=== PATIENT | female | born 1980 | race Caucasian/White ===

== ENCOUNTER 2016-09-20 16:46 | Emergency (ER) | payer OTHER ==
[~2016-09-20] VITALS: Ht 160 cm; Wt 90.7 kg
[~2016-09-20 16:46] MED LIST: ALBUTEROL SULF8.5 GM INH; ALPRAZOLAM0.5 MG PO; AMBIEN10 MG PO; CYCLOBENZAPRINE10 MG PO; DOXYCYCLINE HY100 MG PO; FLUTICASONE PRO16 GM NAS; GABAPENTIN300 MG PO; GUIATUSS AC SY120 ML PO; HYDROCODON-ACE1 EA10 PO; IBUPROFEN800 MG PO; LEVOFLOXACIN500 MG PO; LIDODERM700 MG TOP; MOBIC7.5 MG PO; NAPROSYN500 MG PO; NAPROXEN500 MG PO; NORCO 5-325 TA1 EACH PO; OMEPRAZOLE20 MG PO; PREDNISONE20 MG PO; TIZANIDINE HCL2 MG PO; VENTOLIN HFA18 GM INH; ZANTAC 7575 MG PO
[2016-09-20] MEDS ORDERED: ACETAMINOPHEN1 EACH PO (17:00)
[2016-09-20] MEDS ORDERED: ONDANSETRON ODT8 MG PO (18:15)
== END 2016-09-20 18:24 | disposition home or self-care (01) ==
LOC: ED 16:46
DX: M54.5 Low back pain (principal); T67.5XXA Heat exhaustion, unspecified, initial encounter; K21.9 Gastro-esophageal reflux disease without esophagitis; F41.9 Anxiety disorder, unspecified; Z90.49 Acquired absence of other specified parts of digestive tract; Z98.51 Tubal ligation status; Z88.0 Allergy status to penicillin; Z79.899 Other long term (current) drug therapy
CPT/HCPCS: 80053; 81001; 84703; 85025; 96361; 96374; 96375; 99283; J1885; J2405; J7030

== ENCOUNTER 2016-09-26 18:05 | Emergency (ER) | payer OTHER ==
[~2016-09-26] VITALS: Ht 160 cm; Wt 90.7 kg
[~2016-09-26 18:05] MED LIST changes: +ACETAMINOPHEN1 EACH PO; +ONDANSETRON ODT8 MG PO
[2016-09-26] MEDS ORDERED: TYLENOL EXTRA500 MG PO (18:20)
[2016-09-26] MEDS ORDERED: ADVIL200 M1 PO (18:20)
[2016-09-26] MEDS ORDERED: ZITHROMAX250 MG PO (18:50)
[2016-09-27] MEDS ORDERED: DEXAMETHASONE4 MG PO (04:28)
[2016-09-27] MEDS ORDERED: TRAMADOL HCL50 MG PO (04:28)
== END 2016-09-26 18:56 | disposition home or self-care (01) ==
LOC: ED 18:05
DX: J02.9 Acute pharyngitis, unspecified (principal); K21.9 Gastro-esophageal reflux disease without esophagitis; M06.9 Rheumatoid arthritis, unspecified; F41.9 Anxiety disorder, unspecified; Z90.49 Acquired absence of other specified parts of digestive tract; Z98.51 Tubal ligation status; Z79.899 Other long term (current) drug therapy; Z88.0 Allergy status to penicillin
CPT/HCPCS: 99283

== ENCOUNTER 2016-09-27 03:50 | Emergency (ER) | payer OTHER ==
[~2016-09-27] VITALS: Ht 160 cm; Wt 90.7 kg
[~2016-09-27 03:50] MED LIST changes: +ADVIL200 M1 PO; +TYLENOL EXTRA500 MG PO; +ZITHROMAX250 MG PO
[2016-09-27] MEDS ORDERED: DEXAMETHASONE4 MG PO (04:28)
[2016-09-27] MEDS ORDERED: TRAMADOL HCL50 MG PO (04:28)
== END 2016-09-27 04:52 | disposition home or self-care (01) ==
LOC: ED 03:50
DX: J02.9 Acute pharyngitis, unspecified (principal); K21.9 Gastro-esophageal reflux disease without esophagitis; F41.9 Anxiety disorder, unspecified; Z98.51 Tubal ligation status; Z90.49 Acquired absence of other specified parts of digestive tract; Z88.0 Allergy status to penicillin; Z79.2 Long term (current) use of antibiotics
CPT/HCPCS: 99283; J1100

== ENCOUNTER 2017-12-26 07:32 | Emergency (ER) | payer OTHER ==
[~2017-12-26] VITALS: Ht 160 cm; Wt 90.7 kg
[~2017-12-26 07:32] MED LIST changes: +DEXAMETHASONE4 MG PO; +TRAMADOL HCL50 MG PO
--- OUTSIDE RECORDS SUMMARY | 2017-12-26 07:36 | XMS ---
PreManage Notification: POOJA CAREY Security Preboarder Events No recent Security Events currently on file CRITERIA MET - Group Notification CARE PROVIDERS DAVE PATINO Primary Care 01/04/2016-Current PHONE: [phone] Jna has no Care Guidelines for this patient. E.Golden VISIT COUNT (12 MO.) 1 [facility] Galleg[facility] TOTAL 1 NOTE: Visits indicate total known visits. ED/UCC VISIT TRACKING (12 MO.) 12/26/2017 07:33 [facility] [place] TYPE: Emergency COMPLAINT: - LOW BACK PAIN,NON INJURY INPATIENT VISIT TRACKING (12 MO.) No inpatient visits to display in this time frame [id number]
[2017-12-26] MEDS ORDERED: TIZANIDINE HCL2 MG PO ×2 (07:42→08:41)
[2017-12-26] MEDS ORDERED: VENTOLIN HFA18 GM INH (07:44)
[2017-12-26] MEDS ORDERED: ZOLPIDEM TARTRAT5 MG PO (07:44)
[2017-12-26] MEDS ORDERED: FLUTICASONE PRO16 GM NAS (07:44)
[2017-12-26] MEDS ORDERED: HYDROXYZINE HCL25 MG PO (07:44)
[2017-12-26] MEDS ORDERED: NORCO 5-325 TA1 EACH PO (08:41)
[2017-12-26] MEDS ORDERED: NAPROSYN500 MG PO (08:41)
== END 2017-12-26 09:00 | disposition home or self-care (01) ==
LOC: ED 07:32
DX: S39.012A Strain of muscle, fascia and tendon of lower back, initial encounter (principal); X58.XXXA Exposure to other specified factors, initial encounter; Z88.0 Allergy status to penicillin
CPT/HCPCS: 72100; 81001; 96372; 99283; J1885

== ENCOUNTER 2019-05-21 05:58 | Emergency (ER) | payer OTHER ==
[~2019-05-21] VITALS: Ht 157.5 cm; Wt 90.7 kg
[~2019-05-21 05:58] MED LIST changes: +HYDROXYZINE HCL25 MG PO; +ZOLPIDEM TARTRAT5 MG PO
--- OUTSIDE RECORDS SUMMARY | 2019-05-21 06:00 | XMS ---
PreManage Notification: POOJA CAREY Security Car Shunter Events No recent Security Events currently on file CRITERIA MET - Group Notification - [facility] - Has Care Guidelines - PDMP CARE PROVIDERS SAUMYA NAVARRO Nurse Practitioner: Family 12/27/2017-Current PHONE: [phone] DAVE PATINO Primary Care 01/04/2016-Current PHONE: [phone] Guidelines Source: [facility] Guidelines Date: 09/23/2018 Care Coordination: Enrolled in mental health services with [employer] [facility].\T\nbsp; Currently not engaging. \T\nbsp; Please contact [facility] with mental health concerns.\T\nbsp; Chantal/ Thaddeus Pacheco: [phone]\T\nbsp; [place]: [phone]. Care History Medical/Surgical 12/27/2017 [facility] - Patient is currently established with [facility]. If patient is seen in the ED during business hours. Please contact CHWs at [facility]. Care Recommendation: This patient has had 5 or more Emergency Department visits in the last 12 months.\T\nbsp; Patient requires education on the scope and purpose of the ED as an acute care provider not a Primary Care Provider and should not be utilized for chronic conditions.\T\nbsp; These are guidelines and the provider should exercise clinical judgment when providing care. E.D. VISIT COUNT (12 MO.) 2 ALLYSON Gallego TOTAL 2 NOTE: Visits indicate total known visits. ED/UCC VISIT TRACKING (12 MO.) 05/21/2019 05:59 [facility] [place] TYPE: Emergency COMPLAINT: - COUGH 09/22/2018 13:26 [facility] [place] TYPE: Emergency COMPLAINT: - NECK PAIN, UPPER BACK PAIN DIAGNOSES: - Pain in thoracic spine - Allergy status to penicillin INPATIENT VISIT TRACKING (12 MO.) No inpatient visits to display in this time frame [id number]
== END 2019-05-21 06:45 | disposition home or self-care (01) ==
LOC: ED 05:58
DX: J45.909 Unspecified asthma, uncomplicated (principal); Z90.49 Acquired absence of other specified parts of digestive tract; Z90.89 Acquired absence of other organs; Z88.0 Allergy status to penicillin
CPT/HCPCS: 99283

== ENCOUNTER 2019-10-22 10:49 | Emergency (ER) | payer OTHER ==
[~2019-10-22] VITALS: Ht 157.5 cm; Wt 90.7 kg
--- OUTSIDE RECORDS SUMMARY | 2019-10-22 10:54 | XMS ---
PreManage Notification: POOJA CAREY Security Clinical Trial Associate Events No recent Security Events currently on file CRITERIA MET - Group Notification - [facility] - Has Care Guidelines - PDMP CARE PROVIDERS SAUMYA NAVARRO Nurse Practitioner: Family 12/27/2017-Current PHONE: [phone] Guidelines Source: [facility] Guidelines Date: 09/23/2018 Care Coordination: Enrolled in mental health services with [employer].\T\nbsp; Currently not engaging. \T\nbsp; Please contact [employer] with mental health concerns.\T\nbsp; [facility]al[facility]: [phone]\T\nbsp; [place]: [phone]. Care History Medical/Surgical 12/27/2017 [facility] - Patient is currently established with [facility]. If patient is seen in the ED during business hours. Please contact CHWs at [facility]. Care Recommendation: This patient has [...] known visits. ED/UCC VISIT TRACKING (12 MO.) 10/22/2019 10:50 [facility] [place] TYPE: Emergency COMPLAINT: - R FOOT INJURY 05/21/2019 05:59 [facility] [place] TYPE: Emergency COMPLAINT: - COUGH DIAGNOSES: - Cough - Unspecified asthma, uncomplicated - Allergy status to penicillin - Acquired absence of other specified parts of digestive tract - Acquired absence of other organs INPATIENT VISIT TRACKING (12 MO.) No inpatient visits to display in this time frame [id number]
[2019-10-22] MEDS ORDERED: NORCO 5-325 TA1 EACH PO (12:10)
== END 2019-10-22 12:37 | disposition home or self-care (01) ==
LOC: ED 10:49
DX: S90.121A Contusion of right lesser toe(s) without damage to nail, initial encounter (principal); W22.8XXA Striking against or struck by other objects, initial encounter; K21.9 Gastro-esophageal reflux disease without esophagitis; F41.9 Anxiety disorder, unspecified; Z88.0 Allergy status to penicillin
CPT/HCPCS: 73630; 99283-25

== ENCOUNTER 2020-07-08 17:09 | Emergency (ER) | payer OTHER ==
[~2020-07-08] VITALS: Ht 157.5 cm; Wt 90.7 kg
--- OUTSIDE RECORDS SUMMARY | 2020-07-08 17:12 | XMS ---
PreManage Notification: POOJA CAREY Security Returned Materials Inspector Events No recent Security Events currently on file CRITERIA MET - Group Notification - [facility] - Has Care Guidelines - PDMP CARE PROVIDERS SAUMYA NAVARRO Nurse Practitioner: Family 12/27/2017-Current PHONE: [phone] Care Guidelines exist for the following facilities: [facility] ( 04/05/2020 ) Care History Medical/Surgical 10/23/2019 [facility] Spoke with patient.\T\nbsp; She has paperwork for Worker\T\#39;s Comp Claim that she will fill out; advised to follow up with PCP Saumya Navarro. 12/27/2017 [facility] - Patient is currently established with [facility]. If patient is seen in the ED during business hours. Please contact CHWs at [facility]. Care Recommendation: This patient has had 5 or more Emergency Department visits in the last 12 months.\T\nbsp; Patient requires education on the scope and purpose of the ED as an acute care provider not a Primary Care Provider and should not be utilized for chronic conditions.\T\nbsp; These are guidelines and the provider should exercise clinical judgment when providing care. EAlin VISIT COUNT (12 MO.) 2 ALLYSON Gallego TOTAL 2 NOTE: Visits indicate total known visits. ED/UCC VISIT TRACKING (12 MO.) 07/08/2020 17:10 [facility] [place] TYPE: Emergency COMPLAINT: - SOB, CHEST PAIN 10/22/2019 10:[address] [facility] [place] TYPE: Emergency COMPLAINT: - R FOOT INJURY DIAGNOSES: - Allergy status to penicillin - Gastro-esophageal reflux disease without esophagitis - Contusion of right lesser toe(s) without damage to nail, initial encounter - Anxiety disorder, unspecified - Striking against or struck by other objects, initial encounter - Contusion of right foot, initial encounter INPATIENT VISIT TRACKING (12 MO.) No inpatient visits to display in this time frame [id number]
[2020-07-08] MEDS ORDERED: VENTOLIN HFA18 GM INH (17:24)
[2020-07-08] MEDS ORDERED: PREDNISONE20 MG PO (17:37)
[2020-07-08] MEDS ORDERED: PROVENTIL HFA6.7 GM INH (17:37)
== END 2020-07-08 18:00 | disposition home or self-care (01) ==
LOC: ED 17:09
DX: J45.909 Unspecified asthma, uncomplicated (principal); K21.9 Gastro-esophageal reflux disease without esophagitis; Z88.0 Allergy status to penicillin
CPT/HCPCS: 71045; 94640; 94664; 99284-25

== ENCOUNTER 2021-07-16 08:52 | Emergency (ER) | payer OTHER ==
[~2021-07-16] VITALS: Ht 157.5 cm; Wt 90.7 kg
[~2021-07-16 08:52] MED LIST changes: +PROVENTIL HFA6.7 GM INH
--- OUTSIDE RECORDS SUMMARY | 2021-07-16 08:54 | XMS ---
PreManage Notification: POOJA CAREY Security Remediation Project Engineer Events No recent Security Events currently on file CRITERIA MET - Group Notification - PDMP CARE PROVIDERS SAUMYA NAVARRO Nurse Practitioner: Family 12/27/2017-Current PHONE: Unknown Care Guidelines exist for the following facilities: [facility] ( 04/05/2020 ) Care History Medical/Surgical 10/23/2019 [facility] Spoke with patient.\T\nbsp; She has paperwork for Worker\T\#39;s Comp Claim that she will fill out; advised to follow up with PCP Saumya Navarro. 12/27/2017 [facility] - Patient is currently established with [facility]. If patient is seen in the ED during business hours. Please contact CHWs at [facility]. Care Recommendation: This patient has had 5 or more Emergency Department visits in the last 12 months.\T\nbsp; Patient requires education on the scope and purpose of the ED as an acute care provider not a Primary Care Provider and should not be utilized for chronic conditions.\T\nbsp; These are guidelines and the provider should exercise clinical judgment when providing care. Elias VISIT COUNT (12 MO.) 1 ALLYSON Gallego TOTAL 1 NOTE: Visits indicate total known visits. ED/UCC VISIT TRACKING (12 MO.) 07/16/2021 08:53 [facility] [place] TYPE: Emergency COMPLAINT: - CHEST DISCOMFORT,COUGH INPATIENT VISIT TRACKING (12 MO.) No inpatient visits to display in this time frame [id number]
[2021-07-16] MEDS ORDERED: QVAR REDIHALE10.6 GM INH (09:38)
[2021-07-16] MEDS ORDERED: VENTOLIN HFA18 GM INH (09:38)
[2021-07-16] MEDS ORDERED: ZYRTEC10 MG PO (09:38)
== END 2021-07-16 11:01 | disposition home or self-care (01) ==
LOC: ED 08:52
DX: J45.909 Unspecified asthma, uncomplicated (principal); B07.0 Plantar wart; M06.9 Rheumatoid arthritis, unspecified; K21.9 Gastro-esophageal reflux disease without esophagitis; Z88.0 Allergy status to penicillin; Z20.822 Contact with and (suspected) exposure to COVID-19
CPT/HCPCS: 80053; 83690; 84703; 85025; 87502; 94640; 99283; C9803; U0003

== ENCOUNTER 2021-08-14 06:03 | Emergency (ER) | payer OTHER ==
[~2021-08-14] VITALS: Ht 157.5 cm; Wt 108.9 kg
[~2021-08-14 06:03] MED LIST changes: +QVAR REDIHALE10.6 GM INH; +ZYRTEC10 MG PO
--- OUTSIDE RECORDS SUMMARY | 2021-08-14 06:04 | XMS ---
PreManage Notification: POOJA CAREY Security Compliance Representative Dealer Events No recent Security Events currently on file CRITERIA MET - [facility] - 2 Visits in 30 Days - Group Notification - PDMP CARE PROVIDERS SAUMYA NAVARRO Nurse Practitioner: Family 12/27/2017-Current PHONE: Unknown Care Guidelines exist for the following facilities: [facility] ( 04/05/2020 ) Care History Medical/Surgical 10/23/2019 [facility] Spoke with patient.\T\nbsp; She has paperwork for Worker\T\#39;s Comp Claim that she will fill out; advised to follow up with PCP Saumya Navarro. 12/27/2017 [facility] - Patient is currently established with [facility]. If patient is seen in the ED during business hours. Please contact CHWs at [facility]. Care Recommendation: This patient has had 5 [...] providing care. EAlin VISIT COUNT (12 MO.) 3 ALLYSON Gallego TOTAL 3 NOTE: Visits indicate total known visits. ED/UCC VISIT TRACKING (12 MO.) 08/14/2021 06:03 [facility] [place] TYPE: Emergency COMPLAINT: - RT SIDE ABD PAIN 07/16/2021 08:53 [facility] TYPE: Emergency COMPLAINT: - CHEST DISCOMFORT,COUGH DIAGNOSES: - Rheumatoid arthritis, unspecified - Cough, unspecified - Plantar wart - Contact with and (suspected) exposure to COVID-19 - Gastro-esophageal reflux disease without esophagitis - Allergy status to penicillin - Unspecified asthma, uncomplicated 07/01/2021 12:42 [facility] [place] TYPE: Emergency COMPLAINT: - POSS OD DIAGNOSES: - Chest pain, unspecified - Other stimulant abuse, uncomplicated - Allergy status to penicillin INPATIENT VISIT TRACKING (12 MO.) No inpatient visits to display in this time frame [id number]
[2021-08-14] MEDS ORDERED: LORAZEPAM1 MG PO (06:15)
[2021-08-14] MEDS ORDERED: ONDANSETRON ODT8 MG PO (09:12)
== END 2021-08-14 09:36 | disposition home or self-care (01) ==
LOC: ED 06:03
DX: K86.9 Disease of pancreas, unspecified (principal); M06.9 Rheumatoid arthritis, unspecified; K21.9 Gastro-esophageal reflux disease without esophagitis; Z88.0 Allergy status to penicillin; Z79.899 Other long term (current) drug therapy
CPT/HCPCS: 36415; 74177; 80053; 81001; 83690; 84703; 85025; 96361; 96375; 96376; 99284-25; J1885; J2270; J2405; J7030; Q9967